=== PATIENT | female | born 1990 | race Caucasian/White ===

== ENCOUNTER 2020-07-20 00:32 | Emergency (ER) | payer OTHER ==
[~2020-07-20] VITALS: Ht 170.2 cm; Wt 86.2 kg
[2020-07-20 00:39] VITALS: BP 179/114
[2020-07-20] MEDS ORDERED: TRAMADOL 50 MG50 MG PO ×2 (02:40→02:44)
== END 2020-07-20 02:46 | disposition home or self-care (01) ==
LOC: ER 00:32
DX: S39.012A Strain of muscle, fascia and tendon of lower back, initial encounter (principal); Z88.8 Allergy status to other drugs, medicaments and biological substances; W10.9XXA Fall (on) (from) unspecified stairs and steps, initial encounter; Y93.89 Activity, other specified; Y92.89 Other specified places as the place of occurrence of the external cause; Y99.8 Other external cause status